=== PATIENT | male | born 1975 | race Caucasian/White ===

== ENCOUNTER 2023-10-10 09:20 | Inpatient (IN) | payer OTHER ==
[2023-10-10] MEDS ORDERED: FOLIC ACID 5 MG/1 ML ONE (09:31)
[2023-10-10] MEDS ORDERED: THIAMINE HCL 200 MG/2 ML VIAL ONE (09:31)
[2023-10-10] MEDS ORDERED: diazePAM CARPU-JECT 10 MG/2 ML DISP.SYRIN ONE ×3 (09:31→13:08)
[2023-10-10] MEDS ORDERED: MULTIVIT INJ. ADULT COMBO WITH VIT K 1 COMBO 10 ML VIAL IV ONE (09:32)
[2023-10-10] MEDS: FOLIC ACID INJECTION - 1 MG, THIAMINE HCL 100 MG, MULTIVIT INJECTION ADULT 10 ML in SOD... IVPB ONE (09:40)
[2023-10-10] MEDS: diazePAM CARPU-JECT 10 MG/2 ML DISP.SYRIN IVPUSH ONE ×3 (09:42→13:10)
[2023-10-10 09:51] LABS: HEMATOCRIT 45.8 % (35.4-49); HEMOGLOBIN 15.3 G/dL (11.7-16.9); MCH 35.2 pg (25.7-33.7); MCHC 33.3 g/dl (32.0-35.9); MEAN CELL VOLUME 105.8 fl (80-96); MEAN PLT VOLUME 7.8 fl (7.5-11.1); PLATELET COUNT 104.6 10^3/uL (134-434); RBC 4.33 10^6/uL (4.00-5.60); RDW 13.8 % (11.9-15.9); WHITE BLOOD COUNT 6.6 10^3/uL (4.0-10.8)
[2023-10-10] MEDS ORDERED: ONDANSETRON 4 MG/2 ML VIAL ONE (09:51)
[2023-10-10] MEDS ORDERED: FAMOTIDINE 20 MG/50 ML IVPB 20 MG/50 ML MG IVPB ONE (09:52)
[2023-10-10] MEDS: ONDANSETRON 4 MG/2 ML VIAL IVPUSH ONE (09:55)
[2023-10-10] MEDS: FAMOTIDINE 20 MG/50 ML IVPB 20 MG/50 ML MG IVPB ONE (10:00)
[2023-10-10 10:07] LABS: ALBUMIN 4.6 g/dl (3.4-5.0); ALK PHOS 61 U/L (45-117); ANION GAP 19 mmol/L (4-13); CALCIUM 9.6 mg/dl (8.5-10.1); CHLORIDE 101 mmol/L (98-107); CO2 22 mmol/L (21-32); GLUCOSE,RANDOM 151 mg/dl (74-106); MAGNESIUM 1.8 mg/dL (1.8-2.4); PHOSPHOROUS 3.6 (2.5-4.9); POTASSIUM 4.1 mmol/L (3.5-5.1); SGOT/AST 222 U/L (15-37); SGPT/ALT 232 U/L (7-52); SODIUM 142 mmol/L (136-145); TOT PROT 6.6 g/dl (6.4-8.2)
[2023-10-10 10:44] LABS: VENOUS BASE EXCESS -1.6 mmol/L (-2-2); VENOUS O2 SATURATION 87.5 % (70-80); VENOUS PCO2 32.8 mmHg (38-52); VENOUS PH 7.436 (7.310-7.410)
[2023-10-10 12:59] LABS: URINE MUCUS FEW
[2023-10-10] MEDS ORDERED: LACTATED RINGERS SOLUTION 1,000 ML/1,000 ML INFUS.BAG IV SCH (15:00)
[2023-10-10 15:54] VITALS: BMI 23.3
[2023-10-10] MEDS: LORazepam 1 MG TABLET PO SCH (16:00)
[2023-10-10] MEDS: PANTOPRAZOLE 40 MG TABLET PO SCH (16:01)
[2023-10-10] MEDS: amLODIPine BESYLATE 10 MG TABLET (FP) PO SCH (16:01)
[2023-10-10] MEDS: LORazepam 1 MG TABLET PO PRN (18:53)
[2023-10-10 22:30] VITALS: RESP 19
[2023-10-11 09:16] LABS: HEMATOCRIT 47.4 % (35.4-49); HEMOGLOBIN 15.3 G/dL (11.7-16.9); MCH 34.3 pg (25.7-33.7); MCHC 32.3 g/dl (32.0-35.9); MEAN CELL VOLUME 106.1 fl (80-96); MEAN PLT VOLUME 8.9 fl (7.5-11.1); PLATELET COUNT 101.9 10^3/uL (134-434); RBC 4.47 10^6/uL (4.00-5.60); RDW 13.8 % (11.9-15.9); WHITE BLOOD COUNT 5.5 10^3/uL (4.0-10.8)
[2023-10-11 09:42] LABS: ALBUMIN 4.3 g/dl (3.4-5.0); ALK PHOS 59 U/L (45-117); ANION GAP 12 mmol/L (4-13); BILIRUBIN,TOTAL 1.2 mg/dl (0.2-1); CALCIUM 9.7 mg/dl (8.5-10.1); CHLORIDE 98 mmol/L (98-107); CO2 26 mmol/L (21-32); CREATININE 0.8 mg/dl (0.6-1.3); GLUCOSE,RANDOM 96 mg/dl (74-106); MAGNESIUM 1.9 mg/dL (1.8-2.4); PHOSPHOROUS 3.4 (2.5-4.9); POTASSIUM 3.9 mmol/L (3.5-5.1); SGOT/AST 127 U/L (15-37); SGPT/ALT 172 U/L (7-52); SODIUM 136 mmol/L (136-145); TOT PROT 6.8 g/dl (6.4-8.2)
[2023-10-11] MEDS: FOLIC ACID 1 MG TABLET (FP) PO SCH (09:48)
[2023-10-11] MEDS: THIAMINE 100 MG TABLET PO SCH (09:48)
[2023-10-11] MEDS: MULTIVITAMINS (DAILY MVI) TABLET (FP) PO SCH (09:48)
[2023-10-11 14:45] VITALS: BP 132/102; PULSE 109; TEMP 98.4
[2023-10-11] MEDS: NICOTINE 14 MG/24 HOURS TOPICAL PATCH TD SCH (15:42)
[2023-10-12] MEDS ORDERED: LORazepam 1 MG TABLET PO SCH (05:00)
[2023-10-13] MEDS ORDERED: LORazepam 0.5 MG TABLET PO PRN
[2023-10-13] MEDS ORDERED: LORazepam 0.5 MG TABLET PO SCH (05:00)
[2023-10-14] MEDS ORDERED: LORazepam 0.5 MG TABLET PO ONE (05:00)
== END 2023-10-11 19:30 | disposition left against medical advice (07) | DRG 894 ==
LOC: FER 09:20 → FM/S 12:54
PROC: HZ2ZZZZ Detoxification Services for Substance Abuse Treatment (ICD-10-PCS; principal; 2023-10-10)
DX: F10.239 Alcohol dependence with withdrawal, unspecified (principal)
CPT/HCPCS: 36415; 80053; 80307; 81003; 81015; 82010; 82803; 83690; 83735; 84100; 84484; 85027; 93005; 99291